=== PATIENT | female | born 1995 | race Caucasian/White ===

== ENCOUNTER 2016-10-31 15:00 | Emergency (ER) | payer SELFPAY ==
[~2016-10-31] VITALS: Ht 165.1 cm; Wt 47.3 kg
--- NOTE | 2016-10-31 15:47 | NUR ---
PATIENT AMBULATED TO ER BED 4.
--- NOTE | 2016-10-31 15:50 | NUR ---
PATIENT BEING EVALUATED BY DR. BANGURA.
--- NOTE | 2016-10-31 15:55 | NUR ---
PATIENT PRESENTS TO ED WITH C/O FREQUENT UTI'S X 6MONTHS;DYSURIA, HESITANCY, FREQUENCY, BURNING PAIN X 4 DAYS;DENIES HEMATURIA;PT STATES SHE HAS DISCHARGES COMING OUT;DENIES N/V/D; SKIN IS PINK/WARM/DRY; AAOX4 WITH EVEN AND STEADY GAIT; LUNGS CLEAR BL; HR EVEN AND REGULAR; PT DENIES ANY FEVER, CP, SOB, OR COUGH AT THIS TIME; PATIENT STATES PAIN OF 6/10 AT THIS TIME;PATIENT POSITIONED FOR COMFORT; HOB ELEVATED; BEDRAILS UP X2; BED DOWN. ER MD MADE AWARE OF PT STATUS.
[2016-10-31 16:21] VITALS: BP 118/64
--- NOTE | 2016-10-31 16:21 | NUR ---
Patient discharged with v/s stable. Written and verbal after care instructions given and explained. Patient alert, oriented and verbalized understanding of instructions. Ambulatory with steady gait. All questions addressed prior to discharge. ID band removed. Patient advised to follow up with PMD. Rx of DIFLUCAN AND CEPHALEXIN given. Patient educated on indication of medication including possible reaction and side effects. Opportunity to ask questions provided and answered.
[2016-10-31 16:25] LABS: BILIRUBIN,URINE NEGATIVE (NEGATIVE); BLOOD, URINE NEGATIVE (NEGATIVE); COLOR,URINE YELLOW (YELLOW); LEUKOCYTE ESTERASE ,URINE 1+ (NEGATIVE); NITRITE, URINE NEGATIVE (NEGATIVE); PH,URINE 7.5 (5.0-9.0); UGLUCOSE NEGATIVE (NEGATIVE)
[2016-10-31 16:26] LABS: APPEARANCE,URINE HAZY (CLEAR)
[2016-10-31 16:36] LABS: RBC,URINE 0-5 (RARE) /HPF (0-5); WBC,URINE 6-15 (FEW) /HPF (0-5)
== END 2016-10-31 16:21 | disposition home or self-care (01) ==
LOC: MED 15:00
DX: N39.0 Urinary tract infection, site not specified (principal)
CPT/HCPCS: 81001; 81025; 87086; 99284

== ENCOUNTER 2017-03-04 14:00 | Emergency (ER) | payer OTHER ==
[~2017-03-04] VITALS: Ht 165.1 cm; Wt 59.9 kg
[2017-03-04 14:16] VITALS: BP 120/77
--- NOTE | 2017-03-04 14:55 | NUR ---
PT CAME IN C/O PAINFUL URINATION, WHITE ODORUS DISCHARGE, BURNING/PAIN/ITCH WITH URINAITON. DENIES BEING ON ANY MEDICATIONS OR SEXUAL ACTIVITY. A&OX4. NO DISTRESS. MD AWARE. CONTINUE TO MONITOR.
--- NOTE | 2017-03-04 16:30 | NUR ---
Pelvic exam performed by md Horton with Stephen CHURCH at bedside for entire examination. Patient tolerated procedure well. Patient assisted to position of comfort after examination. Cultures collected and sent to lab
[2017-03-04 18:07] VITALS: BP 120/72
--- NOTE | 2017-03-04 18:07 | NUR ---
Patient discharged with v/s stable. Written and verbal after care instructions given and explained. Patient alert, oriented and verbalized understanding of instructions. Ambulatory with to car. All questions addressed prior to discharge. ID band removed. Patient advised to follow up with PMD. Rx of Keflex and MOtrin given. Patient educated on indication of medication including possible reaction and side effects. Opportunity to ask questions provided and answered.
[2017-03-05 00:29] LABS: COLOR,URINE STRAW (YELLOW)
[2017-03-05 00:30] LABS: APPEARANCE,URINE SLIGHTLY CLOUDY (CLEAR); BLOOD, URINE 2+ (NEGATIVE); UGLUCOSE NEGATIVE (NEGATIVE)
[2017-03-05 00:31] LABS: BILIRUBIN,URINE NEGATIVE (NEGATIVE); LEUKOCYTE ESTERASE ,URINE 2+ (NEGATIVE); NITRITE, URINE POSITIVE (NEGATIVE)
[2017-03-05 00:33] LABS: RBC,URINE 3-10 (FEW) /HPF (0-5); WBC,URINE 20-60 /HPF (0-5)
[2017-03-06 06:14] LABS: CHLAMYDIA TRACHOMATIS AMP DNA Negative (Negative)
== END 2017-03-04 18:07 | disposition home or self-care (01) ==
LOC: MED 14:00
DX: N39.0 Urinary tract infection, site not specified (principal); R30.0 Dysuria; R10.30 Lower abdominal pain, unspecified
CPT/HCPCS: 36415; 81001; 81025; 87086; 87186; 87210; 87491; 99284